=== PATIENT | male | born 1995 | race Caucasian/White ===

== ENCOUNTER 2018-03-24 03:25 | Observation (INO) | payer OTHER ==
[~2018-03-24] VITALS: Ht 182.9 cm; Wt 74.8 kg
[2018-03-24] MEDS ORDERED: NS(*) 0.9% 1000 ML BAG 1,000 ML IV ONE (03:36)
--- NOTE | 2018-03-24 03:36 | ER Report ---
History and Physical Time Seen By MD: 03:27 HPI/ROS CHIEF COMPLAINT: Right upper quadrant abdominal pain HISTORY OF PRESENT ILLNESS: 22-year-old male presents ambulatory to the ER unable to sleep tonight secondary to pain in his right upper quadrant. Patient's been having pains in his right upper quadrant intermittently over the last 6 months. He describes never lasting more than a few hours. He notes he only gets nauseated when the pain gets severe. He notes no association with food. He notes no association with bowel habits. He notes no hematuria or dysuria. He's had no previous abdominal surgery. He denies family history of I BS, inflammatory bowel disease. Patient notes no exacerbating or alleviating factors. He notes no foods that he is allergic too. Patient reports history of a similar episode 3 years ago when he was evaluated in the ER and they told him that he had colic or was an intestinal problem. REVIEW OF SYSTEMS: Respiratory: No cough, no dyspnea. Cardiovascular: No chest pain, no palpitations. Gastrointestinal: As above Musculoskeletal: No back pain. Allergies: Coded Allergies: No Known Drug Allergies (Unverified , 03/24/18) Home Meds No Active Prescriptions or Reported Meds Reviewed Nurses Notes: Yes Old Medical Records Reviewed: Yes Constitutional Vital Sign - Last 24 Hours 03/24/18 03/24/18 03/24/18 03/24/18 03:28 03:29 03:40 03:55 Temp 98.1 Pulse 61 59 49 Resp 14 B/P (MAP) 136/69 (91) 136/69 Pulse Ox 96 97 97 O2 Delivery Room Air 03/24/18 03/24/18 03/24/18 03/24/18 04:04 04:10 04:25 04:30 Pulse 55 56 B/P (MAP) 103/49 (67) 114/59 (77) Pulse Ox 96 95 03/24/18 03/24/18 03/24/18 03/24/18 04:40 04:55 05:00 05:10 Pulse 52 58 B/P (MAP) 104/51 (68) 108/56 (73) Pulse Ox 95 03/24/18 03/24/18 03/24/18 03/24/18 05:15 05:30 05:45 06:02 Pulse 63 54 61 B/P (MAP) 107/50 (69) 126/57 (80) Pulse Ox 98 93 91 03/24/18 03/24/18 03/24/18 03/24/18 06:15 06:30 06:45 07:00 Pulse 57 56 58 57 B/P (MAP) 114/56 (75) Pulse Ox 92 96 95 96 03/24/18 03/24/18 03/24/18 07:15 07:30 07:45 Pulse 58 73 59 B/P (MAP) 121/66 (84) Pulse Ox 95 97 95 Physical Exam General Appearance: The patient is alert, has no immediate need for airway protection and no current signs of toxicity.. Vital signs stable, afebrile, pulse ox normal HEENT: Pupils equal and round no injection. Anicteric sclera Pharynx without redness or exudate, mucous. Membranes are moist Respiratory: Chest is non tender, lungs are clear to auscultation. Cardiac: regular rate and rhythm Gastrointestinal: Abdomen is soft mild left right upper quadrant tenderness, no Bardales sign, no masses, bowel sounds normal. Musculoskeletal: Neck: Neck is supple and non tender. No lymphadenopathy Extremities have full range of motion and are non tender. Skin: No rashes or lesions. DIFFERENTIAL DIAGNOSIS: After history and physical exam differential diagnosis was considered for abdominal pain including but not limited to appendicitis, cholecystitis, gastritis and urinary tract infection. Medical Decision Making Data Points Result Diagram: 03/24/18 1151 03/24/18 0350 Laboratory Hematology Test 03/24/18 03:50 03/24/18 05:11 Sodium Level 137 mmol/L (137-145) Potassium Level 3.6 mmol/L (3.5-5.0) Chloride Level 102 mmol/L (98-107) Carbon Dioxide Level 23 mmol/L (22-30) Blood Urea Nitrogen 18 mg/dl (9-21) Creatinine 1.00 mg/dl (0.66-1.25) Glomerular Filtration Rate Calc > 60.0 Random Glucose 95 mg/dl (75-110) Calcium Level 9.0 mg/dl (8.4-10.2) Total Bilirubin 0.6 mg/dl (0.2-1.3) Aspartate Amino Transf (AST/SGOT) 19 U/L (0-35) Alanine Aminotransferase (ALT/SGPT) 26 U/L (0-56) Alkaline Phosphatase 48 U/L (0-126) Total Protein 7.0 g/dl (6.3-8.2) Albumin 4.1 g/dl (3.5-5.0) Amylase Level 71 U/L (0-110) Lipase 41 U/L (23-300) Urine Color Yellow Urine Clarity Slightly-cloudy Urine pH 5.0 pH (4.8-9.5) Urine Specific [place] 1.027 Urine Protein 30 mg/dL (NEGATIVE) Urine Glucose (UA) Negative mg/dL (NEGATIVE) Urine Ketones Negative mg/dL (NEGATIVE) Urine Blood Negative (NEGATIVE) Urine Nitrite Negative (NEGATIVE) Urine Bilirubin Negative (NEGATIVE) Urine Urobilinogen 2.0 mg/dL (0.2-1.9) Urine Leukocyte Esterase Negative (NEGATIVE) Urine RBC <1 /HPF (0-2/HPF) Urine WBC 3 /HPF (0-5/HPF) Urine Squamous Epithelial Cells None /LPF (</=FEW) Urine Transitional Epithelial Cells Few /LPF (NONE-FEW) Urine Bacteria Negative /HPF (NONE-FEW) Urine Hyaline Casts Few /LPF (NONE-FEW) Urine Mucus Few /HPF (NONE-FEW) Chemistry Test 03/24/18 03:50 03/24/18 05:11 Glomerular Filtration Rate Calc > 60.0 Calcium Level 9.0 mg/dl (8.4-10.2) Total Bilirubin 0.6 mg/dl (0.2-1.3) Aspartate Amino Transf (AST/SGOT) 19 U/L (0-35) Alanine Aminotransferase (ALT/SGPT) 26 U/L (0-56) Alkaline Phosphatase 48 U/L (0-126) Total Protein 7.0 g/dl (6.3-8.2) Albumin 4.1 g/dl (3.5-5.0) Amylase Level 71 U/L (0-110) Lipase 41 U/L (23-300) Urine Color Yellow Urine Clarity Slightly-cloudy Urine pH 5.0 pH (4.8-9.5) Urine Specific [place] 1.027 Urine Protein 30 mg/dL (NEGATIVE) Urine Glucose (UA) Negative mg/dL (NEGATIVE) Urine Ketones Negative mg/dL (NEGATIVE) Urine Blood Negative (NEGATIVE) Urine Nitrite Negative (NEGATIVE) Urine Bilirubin Negative (NEGATIVE) Urine Urobilinogen 2.0 mg/dL (0.2-1.9) Urine Leukocyte Esterase Negative (NEGATIVE) Urine RBC <1 /HPF (0-2/HPF) Urine WBC 3 /HPF (0-5/HPF) Urine Squamous Epithelial Cells None /LPF (</=FEW) Urine Transitional Epithelial Cells Few /LPF (NONE-FEW) Urine Bacteria Negative /HPF (NONE-FEW) Urine Hyaline Casts Few /LPF (NONE-FEW) Urine Mucus Few /HPF (NONE-FEW) Urinalysis Test 03/24/18 05:11 Urine Color Yellow Urine Clarity Slightly-cloudy Urine pH 5.0 pH (4.8-9.5) Urine Specific [place] 1.027 Urine Protein 30 mg/dL (NEGATIVE) Urine Glucose (UA) Negative mg/dL (NEGATIVE) Urine Ketones Negative mg/dL (NEGATIVE) Urine Blood Negative (NEGATIVE) Urine Nitrite Negative (NEGATIVE) Urine Bilirubin Negative (NEGATIVE) Urine Urobilinogen 2.0 mg/dL (0.2-1.9) Urine Leukocyte Esterase Negative (NEGATIVE) Urine RBC <1 /HPF (0-2/HPF) Urine WBC 3 /HPF (0-5/HPF) Urine Squamous Epithelial Cells None /LPF (</=FEW) Urine Transitional Epithelial Cells Few /LPF (NONE-FEW) Urine Bacteria Negative /HPF (NONE-FEW) Urine Hyaline Casts Few /LPF (NONE-FEW) Urine Mucus Few /HPF (NONE-FEW) EKG/Imaging Imaging Results: CT scan of the abdomen and pelvis with IV contrast was obtained. The results of the study are CT of the abdomen and pelvis with contrast: Indication: Acute and chronic right abdominal pain. Technique: Helical CT was performed through the abdomen and pelvis following IV contrast enhancement with 75 cc of Isovue-370. Multiplanar reconstructions are reviewed. One of the following dose optimization techniques was utilized in the performance of this exam: Automated exposure control; adjustment of the mA and/or kV according to the patient's size; or use of an iterative reconstruction technique. Specific details can be referenced in the facility's radiology CT exam operational policy. Comparison: None. Lower lung stern: No parenchymal or pleural abnormality is identified. Liver: Normal in size, shape, and density. There is uniform enhancement of the venous structures. Gallbladder/biliary tree: The gallbladder appears contracted, but otherwise unremarkable. The bile ducts are normal in caliber. Pancreas: Normal in size, shape, and density. There are no signs of peripancreatic inflammation or fluid. Spleen: Normal in size, shape, and density. Adrenal glands: Within normal limits. Kidneys/urinary bladder: The kidneys are normal in size, shape, and density. There are no signs of urinary tract calculus or obstruction. The bladder is unremarkable, as visualized. Intestinal structures: The appendix is mildly dilated, measuring 7 to 8 mm in size. The lumen is filled with fluid, and there is mild enhancement of the wall. No inflammatory changes or fluid are clearly identified around the appendix. The findings are suspicious for early acute appendicitis. The intestinal structures are otherwise unremarkable. Pelvis: Unremarkable. No evidence of fluid collection or free fluid. Aorta and vascular structures: Within normal limits. Ascites or fluid collections: None seen. Skeletal structures: Well mineralized and intact. Impression: Findings suspicious for early acute appendicitis. The study was read by the radiologist. I viewed the images myself on the PACS system. ED Course/Re-evaluation Clinical Indication for ER IV: Hydration, IV Access ED Course Patient was admitted to an examination room. H&P was done. The differential diagnoses was considered. On clinical examination. Patient has some very mild right lower quadrant tenderness. He is complaining of right upper quadrant pain. CAT scan was performed which shows equivocal findings of a potential early acute appendicitis. Surgical consultation was called with Dr. Ward Chávez. He decided to admit the patient for observation. 03/24/2018 6:44:03 am case discussed with Dr. Ward Chávez dental surgery on- call, who will come evaluate the patient. Decision to Disposition Date: Mar 24, 2018 Decision to Disposition Time: 04:21 Depart Departure Latest Vital Signs Vital Signs Date Time Temp Pulse Resp B/P (MAP) Pulse Ox O2 Delivery O2 Flow Rate FiO2 03/24/18 07:45 59 95 03/24/18 07:30 121/66 (84) 03/24/18 03:29 98.1 14 Room Air Impression: Primary Impression: Appendicitis Condition: Improved Disposition: Admitted from ER New Scripts No Active Prescriptions or Reported Meds Problem Qualifiers Primary Impression: Appendicitis Appendicitis type: unspecified Qualified Codes: K37 - Unspecified appendicitis COLIN MARTINEZ DO Mar 24, 2018 03:36
[2018-03-24] MEDS ORDERED: KETOROLAC 30 MG/ML VIAL IVP ONE (03:40)
[2018-03-24] MEDS ORDERED: ONDANSETRON 4 MG/2 ML VIAL IVP ONE (03:40)
[2018-03-24 04:23] LABS: PLATELET COUNT, AUTOMATED 258 K/uL (150-450)
[2018-03-24] MEDS ORDERED: IOPAMIDOL 76% 75 ML INFUS BTL 75 ML ONE (05:54)
--- NOTE | 2018-03-24 06:38 | RADIOLOGY IMAGING REPORT ---
[place] [facility] [place] Pérez : 1995 MR: [id number] V: [id number] EXAM DATE: ORDERING PHYSICIAN: COLIN SIMPSON TECHNOLOGIST: Location: [facility] [place] Patient: Raj Pérez : 1995 Visit/Account:[id number] Date of Sevice: 03/24/2018 CT of the abdomen and pelvis with contrast: Indication: Acute and chronic right abdominal pain. Technique: Helical CT was performed through the abdomen and pelvis following IV contrast enhancement with 75 cc of Isovue-370. Multiplanar reconstructions are reviewed. One of the following dose optimization techniques was utilized in the performance of this exam: Autom ated exposure control; adjustment of the mA and/or kV according to the patient's size; or use of an i terative reconstruction technique. Specific details can be referenced in the facility's radiology CT exam operational policy. Comparison: None. Lower lung stern: No parenchymal or pleural abnormality is identified. Liver: Normal in size, shape, and density. There is uniform enhancement of the venous structures. Gallbladder/biliary tree: The gallbladder appears contracted, but otherwise unremarkable. The bile du cts are normal in caliber. Pancreas: Normal in size, shape, and density. There are no signs of peripancreatic inflammation or fl uid. Spleen: Normal in size, shape, and density. Adrenal glands: Within normal limits. Kidneys/urinary bladder: The kidneys are normal in size, shape, and density. There are no signs of ur inary tract calculus or obstruction. The bladder is unremarkable, as visualized. Intestinal structures: The appendix is mildly dilated, measuring 7 to 8 mm in size. The lumen is fill ed with fluid, and there is mild enhancement of the wall. No inflammatory changes or fluid are clearl y identified around the appendix. The findings are suspicious for early acute appendicitis. The intestinal structures are otherwise unremarkable. Pelvis: Unremarkable. No evidence of fluid collection or free fluid. Aorta and vascular structures: Within normal limits. Ascites or fluid collections: None seen. Skeletal structures: Well mineralized and intact. Impression: Findings suspicious for early acute appendicitis. A preliminary report was called to Dr. Simpson at [facility] at 0630 hours. Report Dictated By: Narendra Gómez MD at 03/24/2018 6:18 AM Report E-Signed By: Narendra Gómez MD at 03/24/2018 6:34 AM WSN:[id number]
[2018-03-24 08:38] VITALS: BP 115/55
[2018-03-24] MEDS ORDERED: LR(*) 1000 ML BAG 1,000 ML IV PRN (08:40)
--- NOTE | 2018-03-24 10:29 | HISTORY AND PHYSICAL ---
DATE OF ADMISSION: March 24, 2018 CHIEF COMPLAINT Abdominal pain. HISTORY OF PRESENT ILLNESS This is a 22-year-old male who presents to the emergency department complaining of the onset about five hours ago of severe abdominal pain located in the upper part of the abdomen. The patient states he has had numerous episodes of this in recent six or more months and the pain is described as being in the same location, although not as severe as today. It is never associated with nausea or vomiting. It usually will last about 20 to 30 minutes and then will fairly rapidly taper off. Today, the patient reports similar symptoms, although more severe and persistent. He denies nausea or vomiting at least until an IV was set in the ED. He also denies sweats, chills, headache and diarrhea. At the time that I am now seeing the patient, he reports that the pain is less. He also notes he is beginning to feel some appetite. He has never tried taking any medicines for these symptoms either now or in previous episodes. PAST SURGICAL HISTORY The only prior procedure was extraction of wisdom teeth. PAST MEDICAL HISTORY The patient has some seasonal allergies for which in the past he has taken a prescription long-acting antihistamine but is currently on no medicines now. ALLERGIES No known drug allergies. SOCIAL HISTORY The patient denies smoking of both tobacco and marijuana. He admits to rare alcohol use. He denies any use of illicit drugs. FAMILY HISTORY Positive for hypertension in both parents and elevated cholesterol in one parent. A grandfather had diabetes mellitus. Multiple family members have had irritable bowel syndrome and inflammatory bowel disease. Patient also notes that multiple close family members have had appendicitis and undergone appendectomy. REVIEW OF SYSTEMS CONSTITUTIONAL: No fevers. EYES: No recent visual changes. ENT/MOUTH: No dysphagia. RESPIRATORY: No cough. No shortness of breath. CV: No chest pain. GI: As noted above. NEUROLOGICAL: No history of migraines. PSYCHIATRIC: No anxiety or depression. MUSCULOSKELETAL: No recent trauma. No joint swelling. ENDOCRINE: No heat or cold intolerance. HEME: No history of coagulopathy. PHYSICAL EXAMINATION GENERAL: This is a well-developed, well-nourished young adult male in no acute distress. VITAL SIGNS: Temperature 98.1 orally, pulse rate 57, blood pressure 120/57, O2 saturation 96% on room air. HEAD/NECK: Head is atraumatic/normocephalic. EYES: Pupils are equally reactive bilaterally. Sclerae are anicteric. Conjunctivae are not pale. ENT/MOUTH: External ears and nose appear normal. Oropharynx is unremarkable. RESPIRATORY: Lungs are clear to auscultation bilaterally. CV: Heart has regular rate and rhythm with no murmurs or tachycardia. ABDOMEN: Bowel sounds are positive. Abdomen is soft and flat. There is minimal tenderness in the right lower quadrant without any guarding. INTEGUMENTARY: Skin is clear, warm and dry. Nails appear normal. EXTREMITIES: No limb deformities. Legs are without edema. NEUROLOGICAL: Hand home health scheduler are equal and strong bilaterally. PSYCHIATRIC: Patient is awake and alert. He is oriented. He responds appropriately throughout the interview and exam. REPORTS CBC shows WBC of 14.5 with 70.7% neutrophils ( this was at the time of patient's arrival in the ED at 0350), hemoglobin 16.1, hematocrit 46.6, platelet count 258. CMP is all within normal limits. RADIOLOGICAL STUDIES CT scan of the abdomen was performed and this shows the appendix is mildly dilated with a diameter of 7 to 8 mm. The lumen is seen filled with fluid and there is "mild enhancement of the wall". There were no inflammatory changes or fluid clearly identified around the appendix. The official reading is "suspicious for early acute appendicitis". ASSESSMENT Abdominal pain of uncertain etiology. The elevated white blood cell count and the changes seen on CT scan are worrisome for early acute appendicitis. However, overall the patient does not give that impression. He does not appear sick as a typical appendicitis patient and also has an appetite, which is rare among appendicitis cases. However, I cannot rule this out completely and the elevated white count is of some concern. PLAN The patient will be admitted for observation. He will be kept on an NPO status and well hydrated. I will repeat my exam later today and repeat the CBC on him. ANDREAD
[2018-03-24 11:14] VITALS: Ht 182.9 cm; Wt 74.8 kg
[2018-03-24 11:57] VITALS: BP 113/53
[2018-03-24 11:58] LABS: PLATELET COUNT, AUTOMATED 245 K/uL (150-450)
--- NOTE | 2018-03-24 14:36 | DISCHARGE SUMMARY ---
DATE OF ADMISSION: March 24, 2018 DATE OF DISCHARGE: March 24, 2018 ADMISSION DIAGNOSIS Abdominal pain, possible acute appendicitis. DISCHARGE DIAGNOSIS Abdominal pain, not acute appendicitis. SURGEON Ward Chávez MD PROCEDURES None. HISTORY OF PRESENT ILLNESS This is a 22-year-old male who presented to the emergency department about 10 hours ago complaining of severe upper abdominal pain. The patient noted having numerous prior episodes in the previous 6 or more months. He states these usually would last 20-30 minutes and then start to taper off, but this time the pain was much more severe than usual and persistent. He denies nausea and vomiting associated with this, although he did experience some vomiting in the emergency department when they were setting the IV. Prior to today, the patient reports doing well. He had been having normal appetite. Today, his appetite was noted to be diminished, but at the time that I saw him, which was about 5 hours after first presentation, he reported that his appetite was already beginning to come back. PAST MEDICAL HISTORY Noncontributory. PAST SURGICAL HISTORY Extraction of wisdom teeth. MEDICATIONS No chronic meds at home. ALLERGIES No known drug allergies. HOSPITAL COURSE The initial CT scan showed a fluid filled appendix, but otherwise no real signs of inflammation or infection. The greatest concern was because the initial WBC was 14 with a normal differential. Because of this, the patient was admitted for observation. He was kept npo and was well hydrated with IV fluids. The CBC was repeated at noon today and this shows a completely normal WBC and differential. The patient was asleep when I went in to check on him again. He reports that he is still feeling the pain as he did when I saw him in the emergency room, although he rates it as only a 2 at this time. He says his appetite is a little bit better and he was quite interested in going home. When I repeated my physical exam, I was able to illicit no tenderness at all in the abdomen and it remained flat and soft. Although the exact etiology of the patient's pain is unclear at this time, it is not secondary to an acute appendicitis and so the patient will be discharged home. DISCHARGE INSTRUCTIONS The patient can resume a regular diet and regular activity. There are no restrictions on any of those. No prescription medications are needed. I did recommend to him that he follow up with his primary care physician in the near future so that the source of this recurrent pain can be investigated. I feel this would likely include ultrasound of the gallbladder and possibly upper endoscopy because of the pain's location in the upper abdomen. The patient voices understanding of and in agreement with this plan. He is thus discharged home. MARIAN
== END 2018-03-24 13:50 | disposition home or self-care (01) ==
LOC: ER 04:34 → INTOOBSV 07:47 → MED 07:47
PROVIDERS: ADMIT Surgery; ATTEND Surgery
DX: K37 Unspecified appendicitis (principal)
CPT/HCPCS: 36415; 74177; 81001; 82150; 83690; 85025; 99284; G0378; J1885; J2405; J7030; J7120; Q9967; 82040; 82247; 82310; 82374; 82435; 82565; 82947; 84075; 84132; 84155; 84295; 84450; 84460; 84520